=== PATIENT | female | born 1955 | race Caucasian/White ===

== ENCOUNTER 2017-07-24 16:49 | Emergency (ER) | payer BC ==
[~2017-07-24] VITALS: Ht 172.7 cm; Wt 77.1 kg
[2017-07-24 16:52] VITALS: BP 129/64; PULSE 83; RESP 18; TEMP 98.4; O2SAT 97
[2017-07-24] MEDS ORDERED: SIMV20TA PO (17:07)
[2017-07-24] MEDS ORDERED: LEXA20TA PO (17:07)
[2017-07-24] MEDS ORDERED: HYDR25TA5 PO (17:07)
[2017-07-24] MEDS ORDERED: KETOROLAC TROMETHAMINE 60 MG/2 ML (IM) VIAL IM ONE (17:45)
--- NOTE | 2017-07-24 18:05 | RADRPT ---
EXAM DATE/TIME: 07/24/2017 17:51 [place] COMPARISON: No previous studies available for comparison. INDICATIONS : Fell today on left knee, has pain MEDICAL HISTORY : None. SURGICAL HISTORY : None. ENCOUNTER: Initial ACUITY: 1 day PAIN SCORE: 9/10 LOCATION: Left knee FINDINGS: Four view examination of the left knee demonstrates no evidence of fracture or dislocation. Bony min eralization is normal. The articular surfaces are intact. The suprapatellar soft tissues have a nor mal configuration. CONCLUSION: Intact left knee. Oscar James MD on July 24, 2017 at 18:02 Board Certified Radiologist. This report was verified electronically.
[2017-07-24] MEDS ORDERED: ROBA500T PO (18:43)
--- NOTE | 2017-07-24 18:44 | PD ---
HPI Chief Complaint: Musculoskeletal Complaint Time Seen by Provider: 17:08 Travel History International Travel<30 days: No Contact w/Intl Traveler<30days: No Traveled to known affect area: No History of Present Illness HPI 32 year old female with slip & fall [employer]. she slipped with her right leg extending forward into a forced split position. She fell onto left flexed knee. sHe has left knee pain, right hamstring pain, right shoulder pain, right hand pain. She did not hit her head. She had no loss of consciousness. She is ambulatory. Pain is worse with movement and relieved with rest. Symptoms severity moderate. PFSH Past Medical History Cancer: Yes (LEFT BREAST) High Cholesterol: Yes Diminished Hearing: No Kidney Stones: Yes Radiation Therapy: Yes (LEFT BREAST CANCEER ) Tetanus Vaccination: > 5 Years Influenza Vaccination: No ?: Not Past Surgical History Abdominal Surgery: Yes (R INGUINAL HERNIA) Mastectomy: Yes (left lumpectomy with radiation) Social History Alcohol Use: Yes (occ) Tobacco Use: No Substance Use: No Allergies-Medications (Allergen,Severity, Reaction): Coded Allergies: Sulfa (Sulfonamide Antibiotics) (Verified Allergy, Intermediate, RASH, 07/24/17) codeine (Verified Allergy, Intermediate, RASH, 07/24/17) Reported Meds & Prescriptions Reported Meds & Active Scripts Active Reported Simvastatin 20 Mg Tab 20 Mg PO DAILY Hydrochlorothiazide 25 Mg Tab 25 Mg PO DAILY Lexapro (Escitalopram Oxalate) 20 Mg Tab 20 Mg PO DAILY Review of Systems Except as stated in HPI: all other systems reviewed are Neg Physical Exam Narrative GENERAL: alert well appearing female in no acute distress. SKIN: Warm and dry. HEAD: Normocephalic. EYES: No scleral icterus. No injection or drainage. NECK: Supple, trachea midline. No JVD or lymphadenopathy. CARDIOVASCULAR: Regular rate and rhythm without murmurs, gallops, or rubs. RESPIRATORY: Breath sounds equal bilaterally. No accessory muscle use. GASTROINTESTINAL: Abdomen soft, non-tender, nondistended. MUSCULOSKELETAL: No cyanosis, or edema. left knee: TTP over anterior aspect. No deformity. full ROM. Right Leg: ttp over the hanstring/soft tissue. No bony tenderness. Right hand: TTP over the soft tissue of the palm. No bony tenderness. No deformity. Right Shoulder: TTP over trapezius muscle no bont tenderness. All extremities have 2+ distal pulses. Full ROM. Normal sensation. BACK: Nontender without obvious deformity. No CVA tenderness. Data Data Last Documented VS Vital Signs Date Time Temp Pulse Resp B/P (MAP) Pulse Ox O2 Delivery O2 Flow Rate FiO2 07/24/17 16:52 98.4 83 18 129/64 (85) 97 Orders Orders Knee, Complete (4vws) (07/24/17 ) Ketorolac Inj (Toradol Inj) (07/24/17 17:45) [facility] Medical Decision Making Medical Screen Exam Complete: Yes Emergency Medical Condition: Yes Differential Diagnosis knee contusion, knee fx, hand contusion, right shoulder strain Narrative Course Left knee x-ray is negative for fracture. Physical exam is consistent with right hamstring muscle strain. Diagnosis Primary Impression: Knee contusion Qualified Codes: S80.02XA - Contusion of left knee, initial encounter Additional Impressions: Hamstring muscle strain Qualified Codes: S76.311A - Strain of muscle, fascia and tendon of the posterior muscle group at thigh level, right thigh, initial encounter Hand contusion Qualified Codes: S60.221A - Contusion of right hand, initial encounter Shoulder strain Qualified Codes: S46.911A - Strain of unspecified muscle, fascia and tendon at shoulder and upper arm level, right arm, initial encounter Referrals: Primary Care Physician Additional Instructions: Take [id number] Motrin 800 mg by mouth every 6 hours as needed for pain. Take the muscle relaxer as needed for pain. Use the splint the left knee until weightbearing is comfortable. Follow-up with her doctor Scripts Methocarbamol (Robaxin) 500 Mg Tab 500 MG PO TID for Muscle Spasm for 5 Days, TAB 0 Refills Prov: Naomi Brewster 07/24/17 Disposition: 01 DISCHARGE HOME Condition: Stable Naomi Brewster Jul 24, 2017 18:44
[2017-07-26] MEDS ORDERED: VITA1000 PO (15:12)
[2017-07-26] MEDS ORDERED: FISHCAP4 PO (15:12)
[2017-07-26] MEDS ORDERED: CYCL10TA PO (16:04)
== END 2017-07-24 18:58 | disposition home or self-care (01) ==
LOC: PHEFT 16:49
DX: S80.02XA Contusion of left knee, initial encounter (principal); S76.311A Strain of muscle, fascia and tendon of the posterior muscle group at thigh level, right thigh, initial encounter; S60.221A Contusion of right hand, initial encounter; S46.911A Strain of unspecified muscle, fascia and tendon at shoulder and upper arm level, right arm, initial encounter; E78.00 Pure hypercholesterolemia, unspecified; Z85.3 Personal history of malignant neoplasm of breast; Z87.442 Personal history of urinary calculi; W01.0XXA Fall on same level from slipping, tripping and stumbling without subsequent striking against object, initial encounter
CPT/HCPCS: 73564; 96372; 99284; J1885